=== PATIENT | female | born 2000 | race Two or more races ===

== ENCOUNTER → 2018-03-06 | Outpatient (CLI) | payer BC ==
[~2018-03-06] MED LIST: CONTRAST GIVEN MC
[2018-03-06] MEDS: IOHEXOL 300 MG/ML 100ML VIAL. IV (13:13)
[2018-03-06] MEDS: IOHEXOL 240 MG/ML 50ML VIAL. PO (13:13)
== END | disposition home or self-care (01) ==
LOC: KCIC CT 11:57
DX: E34.9 Endocrine disorder, unspecified (principal); Z87.891 Personal history of nicotine dependence
CPT/HCPCS: 74170; Q9966; Q9967

== ENCOUNTER → 2020-12-08 | Outpatient (CLI) | payer BC ==
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
== END ==
LOC: KCIC 12:31
PROVIDERS: ATTEND Family Medicine
DX: R07.9 Chest pain, unspecified (principal)
CPT/HCPCS: 71046